=== PATIENT | female | born 2000 | race Caucasian/White ===

== ENCOUNTER 2024-08-20 10:10 | Day surgery (SDC) | payer OTHER ==
[2024-08-19 13:37] VITALS: BMI 25.0
[2024-08-19 14:32] LABS: Hematocrit 40.6 % (34.9-44.5); Hemoglobin 13.7 g/dL (12.0-15.5); Mean Corpuscular HGB CONC 33.7 g/dL (32.0-36.0); Mean Corpuscular Hemoglobin 30.8 pg (27.0-33.0); Mean Corpuscular Volume 91.2 fL (81.6-98.3); Mean Platelet Volume 10.5 fL (7.4-10.4); Platelet Count 231 10x3/uL (150-450); RBC Distribution Width 11.6 % (11.5-14.5); Red Blood Cell (RBC) Count 4.45 10x6/uL (3.90-5.03); White Blood Cell (WBC) Count 7.7 10x3/uL (3.5-10.5)
[2024-08-19 14:53] LABS: BHCG - Serum Negative (NEGATIVE); Pregs Control Background? CLEAR/WHITE (CLR/WHITE); Pregs Control Bar Appear? YES (CONTROL BAR)
[2024-08-20] MEDS ORDERED: CeleCOXIB 100 MG CAP ONE (10:18)
[2024-08-20] MEDS ORDERED: Famotidine/PF 20 mg/2ml Vial ONE (10:19)
[2024-08-20] MEDS ORDERED: Gabapentin 300 MG CAP ONE (10:20)
[2024-08-20] MEDS ORDERED: CEFAZOLIN 2 GM VIAL ONE (10:27)
[2024-08-20] MEDS ORDERED: Bupivacaine HCl 0.5%/Epinephrine 1:200,000/PF 30 ml Vial ONE (10:44)
[2024-08-20] MEDS ORDERED: Lidocaine 1% PF 5 ML VIAL ONE (11:33)
[2024-08-20] MEDS ORDERED: fentaNYL 50 mcg/mL 1 mL Vial ONE (11:33)
[2024-08-20] MEDS ORDERED: Rocuronium Bromide 10 MG/ML (10ML VIAL) ONE (11:33)
[2024-08-20] MEDS ORDERED: PROPOFOL 20 ML ONE (11:33)
[2024-08-20] MEDS ORDERED: Midazolam HCl 2 mg/2 ml Vial ONE (11:41)
[2024-08-20] MEDS ORDERED: PHENYLEPHRINE-NS 100 MCG/ML 10 ML SYRINGE ONE (12:05)
[2024-08-20] MEDS ORDERED: Sevoflurane 250 ML INH ANEST BOTTLE ONE (12:06)
[2024-08-20] MEDS ORDERED: Ondansetron PF 4 MG/2 ML Vial ONE (12:06)
[2024-08-20] MEDS ORDERED: Dexamethasone 20 MG/5 ML VIAL ONE (12:06)
[2024-08-20] MEDS ORDERED: Ketorolac Tromethamine 30 MG (1 mL) VIAL ONE (13:08)
[2024-08-20] MEDS ORDERED: Meperidine HCl/PF 25 MG (1 mL) VIAL ONE (13:33)
== END 2024-08-20 15:12 | disposition home or self-care (01) ==
LOC: CSHSDC 10:10
PROVIDERS: ATTEND Obstetrics & Gynecology
PROC: 0UB04ZZ Excision of Right Ovary, Percutaneous Endoscopic Approach (ICD-10-PCS; principal; 2024-08-20)
DX: N83.201 Unspecified ovarian cyst, right side (principal); N80.329 Endometriosis of the posterior cul-de-sac, unspecified depth; Z88.0 Allergy status to penicillin; Z91.013 Allergy to seafood; Z87.891 Personal history of nicotine dependence
CPT/HCPCS: 36415; 84703; 85027; 86850; 86900; 86901; 88305; C9250; J1100; J1885; J2175; J2250; J2405; J2704; J3010; J3490; S2900